=== PATIENT | female | born 1965 | race African-American/Black ===

== ENCOUNTER 2016-12-17 01:38 | Emergency (ER) | payer OTHER | END 2016-12-17 02:10 | disposition home or self-care (01) | LOC: CED 01:38 | DX: L29.9 Pruritus, unspecified (principal); E11.9 Type 2 diabetes mellitus without complications; F17.210 Nicotine dependence, cigarettes, uncomplicated; Z98.890 Other specified postprocedural states | CPT/HCPCS: 82947; 99282 ==

== ENCOUNTER 2017-01-14 18:31 | Emergency (ER) | payer OTHER ==
--- NOTE | ~2017-01-14 | CR126 ---
[facility] A Service of [facility] RADIOLOGY TEXT RESULTS PATIENT: RYAN GIBBS LOCATION: [facility] : 67 UNIT #: [id number] AGE: [address]: Candi Lim SEX: F ORDER DR: [id number] [facility] [address] [place], [place] [address] [id number] E MR#: [id number] Acc #: [id number] NAME: RYAN GIBBS : 1965 SEX: F STUDY DATE/TIME: 01/14/2017 18:34 UNIT: [facility] ROOM: STUDY DESCRIPTION: CR Foot Complete Min 3 View Lt Attending Physician: Candi Lim Pa-C Ordering Physician: Candi Lim Pa-C Primary Care Physician: [facility], [facility]. MEDICAL IMAGING REPORT This report is preliminary unless electronic signature is present EXAM Left foot series dated 01/14/2017 COMPARISON None. HISTORY Left foot pain and swelling in the top of the foot for 3 days. FINDINGS 3 views of the left foot were obtained. No acute displaced fracture or dislocation is seen. Small plantar calcaneal spur is noted. Patient apparently has swelling in the top of the foot which is difficult to identify clearly in this modality. No significant bony injury. Dictated by... Scott Hooper M.D. THIS IS AN ELECTRONICALLY VERIFIED REPORT Scott Hooper M.D. at 01/17/2017 1:44 PM CPR/rnr TD: 01/15/2017 01:47 JOB #: [id number] MEDICAL IMAGING REPORT Page 1 of 1 COPY
== END 2017-01-14 19:18 | disposition home or self-care (01) ==
LOC: CFTX 18:31
DX: M79.672 Pain in left foot (principal); E11.9 Type 2 diabetes mellitus without complications; F32.9 Major depressive disorder, single episode, unspecified; F41.9 Anxiety disorder, unspecified; F17.210 Nicotine dependence, cigarettes, uncomplicated; Z98.890 Other specified postprocedural states
CPT/HCPCS: 73630; 99283

== ENCOUNTER 2017-03-12 12:17 | Emergency (ER) | payer OTHER ==
[2017-03-12 12:54] LABS: POC - CKMB 1.1 ng/mL (0.0-7.9); POC - TROPONIN <0.05 ng/mL (<=0.05)
[2017-03-12 13:08] LABS: BASOPHIL# 0.1 X10e3 (0-0.3); BASOPHIL% 0.7 % (0-2.5); EOSINOPHIL# 0.1 X10e3 (0-0.7); HEMATOCRIT 41.9 % (35.0-45.0); LYMPHOCYTE# 2.6 X10e3 (1.0-3.5); MEAN CELL VOLUME 86.5 FL (83-96); MEAN CORPUSCULAR HEMOGLOBIN 28.9 PG (28-34); MEAN CORPUSCULAR HGB CONC 33.5 g/dL (30-36); MEAN PLATELET VOLUME 9.7 FL (6.5-11.5); MONOCYTE# 0.6 X10e3 (0-1.0); MONOCYTE% 6.3 % (3.0-12.0); PLATELET COUNT 202 X10e3 (140-420); RED BLOOD COUNT 4.84 X10e (3.90-5.30); RED CELL DISTRIBUTION WIDTH 14.2 % (11.0-15.5); WHITE BLOOD COUNT 9.4 X10e3 (4.0-10.5)
[2017-03-12 13:10] LABS: DIFF IND NO
[2017-03-12 13:46] LABS: ALBUMIN SERUM 4.7 g/dL (3.5-5.0); BETA HYDROXYBUTYRATE 0.05 MMOL/L (0.02-0.27); BILIRUBIN, DIRECT 0.1 mg/dL (0.0-0.2); BILIRUBIN,INDIRECT 0.6 mg/dL (0.0-0.9); BILIRUBIN,TOTAL 0.7 mg/dL (0.2-2.0); BUN/CREATININE RATIO 13.07; CALCIUM SERUM 8.9 mg/dL (8.4-10.2); CREATININE SERUM 1.3 mg/dL (0.6-1.4); GLOM FILT RATE Estimated 55.4 mL/min (>60); POTASSIUM 3.9 mmol/L (3.5-5.1); PROTEIN TOTAL SERUM 8.4 g/dL (6.0-8.3)
[2017-03-12 13:47] LABS: URINE SOURCE CLEAN CATCH
[2017-03-12 14:00] LABS: URINE APPEARANCE CLEAR; URINE BILIRUBIN NEG (NEG); URINE BLOOD 1+ (NEG); URINE COLOR YELLOW; URINE GLUCOSE >1000 MG/DL (NEG); URINE KETONE TRACE (NEG); URINE LEUKOCYTE ESTERASE NEG (NEG); URINE NITRATE NEG (NEG); URINE PROTEIN TRACE (NEG); URINE SPECIFIC GRAVITY 1.043 (1.003-1.035)
[2017-03-12 14:07] LABS: CULTURE INDICATED? YES; URINE BACTERIA AUWI 3+ (NEGATIVE); URINE SQUAMOUS EPITHELIAL CELL FEW /[HPF]
== END 2017-03-12 15:33 | disposition home or self-care (01) ==
LOC: CED 12:17
PROVIDERS: Emergency Medicine
DX: E11.65 Type 2 diabetes mellitus with hyperglycemia (principal); N30.00 Acute cystitis without hematuria; M79.1 Myalgia; F32.9 Major depressive disorder, single episode, unspecified; F17.210 Nicotine dependence, cigarettes, uncomplicated
CPT/HCPCS: 36415; 80048; 80076; 81003; 82010; 82550; 82553; 82947; 84484; 85025; 87086; 96361; 96374; 96375; 99284; J2060; J2405